=== PATIENT | male | born 1975 | race Caucasian/White ===

== ENCOUNTER 2021-01-22 15:00 | Outpatient (RCR) | payer OTHER, SELFPAY ==
[2021-01-22] MEDS: COVID-19 VACC, MRNA(PFIZER)/PF 30 MCG/0.3 ML SYRINGE IM (15:51)
[2021-02-12] MEDS: COVID-19 VACC, MRNA(PFIZER)/PF 30 MCG/0.3 ML SYRINGE IM (15:20)
== END 2021-01-22 23:59 ==
LOC: IMMUN 15:00
PROVIDERS: PCP Internal Medicine; Visit Provider Family Medicine
DX: Z23 Encounter for immunization (principal)
CPT/HCPCS: 0001A; 0002A; 91300

== ENCOUNTER → 2021-12-15 10:13 | Outpatient (CLI) | payer BC, SELFPAY ==
[2021-12-15 10:52] LABS: D-Dimer Quantitative (DVT/PE) 0.34 FEU/ug/m (0.27-0.49)
== END ==
PROVIDERS: PCP Internal Medicine
DX: R05.9 Cough, unspecified (principal)
CPT/HCPCS: 85379

== ENCOUNTER → 2022-03-09 | Outpatient (CLI) | payer BC, SELFPAY ==
[2022-03-09] MEDS: Methacholine Chloride 18 ml neb kit INHALATION (13:10)
--- NOTE | 2022-03-10 09:44 | BRONCHALL ---
Bronchoprovocation Challenge Bronchoprovocation Challenge Bronchoprovocation Challenge: INTRODUCTION: The patient is a 47-year-old male that presents for a bronchoprovocation challenge secondary to a diagnosis of cough. Respiratory therapy reported good patient effort and reproducible results. INTERPRETATION: Initial spirometry did not show any large airways obstructive ventilatory defect with preserved airflows throughout. The patient was then given progressively increasing doses of methacholine in a standardized fashion. At no point during testing did the patient's FEV1 drop to the threshold level to be considered a positive test. IMPRESSION: Negative methacholine challenge.
== END | disposition home or self-care (01) ==
LOC: PSN 12:57
PROVIDERS: PCP Internal Medicine
DX: R05.9 Cough, unspecified (principal)
CPT/HCPCS: 94070; 95070

== ENCOUNTER 2024-05-09 15:32 | Emergency (ER) | payer BC, SELFPAY ==
[2024-05-09 15:34] VITALS: BP 137/98; PULSE 77; RESP 18; TEMP 35.7; O2SAT 98; BMI 25.9
--- NOTE | 2024-05-09 15:47 | EKG12_ITS ---
Test Reason : PALPITATIONS Blood Pressure : / mmHG Vent. Rate : 071 BPM Atrial Rate : 071 BPM P-R Int : 154 ms QRS Dur : 090 ms QT Int : 398 ms P-R-T Axes : 000 002 038 degrees QTc Int : 432 ms Normal sinus rhythm Normal ECG Confirmed by ALEX COPELAND MD ([id number]), sports editor CHARLA GODDARD ([id number]) on 05/10/2024 9:37:36 AM Referred By: NANCY Confirmed By:ALEX COPELAND MD
--- NOTE | 2024-05-09 15:51 | EDS_ITS ---
HPI History of Present Illness Chief Complaint: Palpitations Informant: patient and spouse/S.O. Onset/Context/Timing Onset: Today and Hours Activity at onset: sudden Timing: Intermittent Current Severity: Mild Maximum Severity: Mild Narrative Narrative: 49-year-old male history of prior Hodgkin's lymphoma years ago and hypothyroidism that was caused by the radiation therapy basically injured his thyroid. He has been taking his medication regularly. No cardiac history. Send 1 to 2 hours ago he started having palpitations. No chest pain. No significant shortness of breath. He has not recently been ill. He denies any leg pain or swelling. No chest pain. No hemoptysis. No fever. Prior Similar Symptoms: No Recent Illness/Hospitalization: No CVD Risk Factors: Negative for Hypertension or Diabetes PE Risk Factors: Negative for Recent Travel/Surgery, Recent Immobilization, Prior DVT or PE, Cancer or OCP + Smoking + >/=35 TAD Risk Factors: Negative for Marfan's Syndrome PFSH PFS Medical History Hodgkin lymphoma Migraines Head ache History of emotional problems Arthritis Allergies Home Medications ?Medication ?Instructions ?Recorded ?Last Taken ?Type bupropion HCl 300 mg 24 hr tablet, 300 mg PO QAM 12/28/21 Unknown History extended release levothyroxine 75 mcg capsule 75 mcg PO DAILY 12/28/21 Unknown History pantoprazole 20 mg tablet,delayed 20 mg PO DAILY 12/28/21 Unknown History release rizatriptan 10 mg tablet 10 mg PO ONCE PRN migraine 12/28/21 Unknown History allopurinol 100 mg tablet 100 mg PO DAILY 05/09/24 Unknown History Allergy/AdvReac Type Severity Reaction Status Date / Time No Known Allergies Allergy Verified 05/09/24 15:33 Family History Father Arthritis Hypertension Seizures Epilepsy Grandmother Heart disease Mother Hypertension Surgical History Hx of reconstruction of anterior cruciate ligament tear Social History Smoking Status: Former smoker ROS ROS ED ROS Narrative Palpitations today. Denies recent illness. Review of Systems ROS Unobtainable: Denies due to encephalopathy Constitutional Constitutional ED: Denies chills or fever(s) Eyes Eyes: Reports none ENT ENT ED: Denies ear pain Cardiovascular Cardiovascular: Reports as per HPI and palpitations; Denies chest pain Respiratory/Chest Respiratory/Chest: Denies cough or dyspnea on exertion Gastrointestinal Gastrointestinal: Denies abdominal pain Genitourinary Genitourinary ED: Denies dysuria or hematuria Musculoskeletal Musculoskeletal: Denies arthralgias or back pain Integumentary Denies abscess Neurologic Neurologic: Denies headache(s) Psychiatric Psychiatric: Denies anxiety Endocrine Endocrinology: Denies cold intolerance Hematologic/Lymphatic Hematologic/Lymphatic: Denies easy bleeding, easy bruising or lymphadenopathy Allergic/Immunologic Allergic/Immunologic ED: Denies mouth swelling, tongue swelling or urticaria EXAM Physical Exam Narrative Exam Narrative: Middle-age male no acute distress vital signs stable afebrile. H EENT exam unremarkable. Moist extremities. Neck nontender. Lungs clear to auscultation bilaterally. Heart regular rate and rhythm. While I am examining the patient he went from a sinus rhythm to intermittent rapid beats which may be intermittent A-fib or flutter on the monitor. His heart rate went to 120s. Abdomen soft nontender. Moving all 4 extremities. Nontender no edema. Normal strength. Calves are nontender. Back normal. He is awake and alert. No focal motor deficits. Const Vital Signs: 05/09/24 15:34 05/09/24 15:55 05/09/24 15:55 Temperature 96.3 F L Temperature Source Temporal Pulse Rate 77 Respiratory Rate 18 Respiratory Effort Normal Non-Labored Blood Pressure 137/98 H Blood Pressure Mean 111 Pulse Ox 98 Oxygen Delivery Method Room Air Room Air 05/09/24 16:41 Temperature 98.4 F Temperature Source Pulse Rate 75 Respiratory Rate 19 H Respiratory Effort Blood Pressure 116/54 L Blood Pressure Mean 74 Pulse Ox 96 Oxygen Delivery Method Positive well nourished and well developed; Negative for obese, cachectic, contractures or unkempt General Appearance ED: well developed and NAD; Negative for unkempt, cachectic, contractures or pallor Nutritional Appearance: Negative for cachectic or obese HEENT Reports moist mucous membranes; Denies dry mucous membranes normocephalic and atraumatic; Negative for trauma or tenderness Mouth ED: No dry mucous membranes Mouth: No dry mucous membranes Eyes PERRL and EOMs intact bilaterally General Eye ED: Negative for pale conjunctiva, scleral icterus or other Neck no lymphadenopathy, supple and no JVD General: Negative for tenderness Chest Wall inspection of chest normal and palpation of chest normal Resp normal respiratory effort and clear to auscultation bilaterally Effort and Inspection: Negative for respiratory distress Auscultation: Negative for rales, rhonchi or wheezes Cardio regular rate, regular rhythm, S1 normal heart sound, S2 normal heart sound and no murmurs Rate: other Other Details: Patient was initially in sinus rhythm then intermittently went into a rapid irregular rhythm possibly A-fib or flutter. Rhythm: abnormal rhythm irregularly irregular Peripheral Pulses: pulses 2+ throughout GI normal to inspection, nondistended, normoactive bowel sounds, soft to palpation, non-tender, non-distended and no masses Back/Spine no CVA tenderness and no thoracic nor lumbar tenderness General Back: Negative for CVA tenderness Cervical Spine: Negative for cervical spine tenderness Extremity normal to inspection General Extremety ED: Negative for edema, pulses abnormal or tenderness General Extremity: Negative for edema or pulses abnormal Neuro oriented x3 and CN's II-XII intact bilaterally Sensorium / Orientation: awake, alert, oriented to person, oriented to place and oriented to time; Negative for confused, lethargic or stuporous Motor Exam: strength 5/5 throughout; Negative for general weakness or strength abnormal Psych mental status grossly normal Appearance: Negative for unkempt Attitude: No agitated Mood & Affect: Negative for depressed, anxious or tearful Skin no rashes or lesions noted and no wounds General Skin Exam: Negative for jaundice or pallor Rashes: No rashes noted Trauma: Negative for abrasion or laceration MDM MDM MDM Narrative Medical decision making narrative: 49-year-old male prior history of Hodgkin's lymphoma and hypothyroidism due to prior radiation comes in with palpitations during the exam he went in an abnormal rhythm may be A-fib or flutter versus other etiologies. Will undergo cardiac workup with a TSH. Further evaluation showed these are PVCs on his EKG and on the monitor. Not A- fib or flutter. They come and go. Patient and his traveled from [place] recently. He said he used more than as normal caffeine that day. Repeat exam is doing well at 4:30 PM. Went over his test results. We discharged home. Outpatient follow-up. Follow-up with his repeat thyroid test he has upcoming lab work and limit his caffeine. History & Record Review Discussion w/independent historian: Patient and Family Additional record(s) reviewed:: Prior inpatient record, Prior outpatient record, Prior ED visit and Prior labs Lab Data Attestation: I reviewed the patient's lab results. Lab results narrative: CBC normal. White count of 6. H&H of 15 and 45. Platelets 262. Electrolytes show gap 6. Normal BUN and creatinine. Glucose 117. Troponin normal at 6. TSH slightly elevated 5.2. Labs: Laboratory Results - last 24 hr 05/09/24 15:45 WBC 6.8 RBC 5.13 Hgb 15.6 Hct 45.0 MCV 87.7 MCH 30.4 MCHC 34.7 RDW Std Deviation 43.5 RDW Coeff of Robert 13.7 Plt Count 262 MPV 9.8 Immature Gran % (Auto) 0.900 Neut % (Auto) 65.3 Lymph % (Auto) 24.9 [place] % (Auto) 5.7 Eos % (Auto) 2.5 Baso % (Auto) 0.7 Absolute Neuts (auto) 4.5 Absolute Lymphs (auto) 1.70 Nucleated RBC % 0 Sodium 142 Potassium 3.5 Chloride 108 H Carbon Dioxide 28.0 Anion Gap 6 BUN 13 Creatinine 1.16 Estim Creat Clear Calc 76.16 Est GFR (MDRD) Af Amer 87 Est GFR (MDRD) Non-Af 72 BUN/Creatinine Ratio 11.2 Glucose 117 H Calcium 9.0 Troponin I High Sens 6 TSH 5.23 H Radiography Chest X-Ray - ED: 1 View, Read by ED Physician, Normal, Heart, Lungs, Mediastinum, Bony Structures, No Acute Disease and Chronic Changes Diagnostic Testing: Clinical Impression(s) from Imaging Studies Chest X-Ray 05/09/24 15:56 IMPRESSION: No radiographic evidence of acute cardiopulmonary disease. Electronically Signed: Vinh Lopez DO at 16:29 EDT , Chest x-ray, portable, single view interpreted by myself shows no acute abnormality. Normal lung [place]udd[place]. Normal cardiac silhouette. Normal mediastinum. Rhythm Strip Rhythm Strip: Sinus Rhythm Rate: 70 Ectopy: PVC(s) EKG Initial EKG: Attestation: I personally reviewed and interpreted this EKG as follows: Interpretation: Sinus Rhythm and No Acute Injury Pattern Comments: Normal sinus rhythm with runs of PVCs. Prior EKG tracings: not available for review Prior: No Prior Follow-up EKG: Attestation: I personally reviewed and interpreted this EKG as follows: Interpretation: Sinus Rhythm and No Acute Injury Pattern Comments: Normal sinus rhythm rate 71 this EKG had no PVCs. Discharge Plan Triage Chief Complaint: Palpitations ED Provider: Jorge Luis Olmos Dx/Rx/DC Orders Clinical Impression: Heart palpitations, Frequent PVCs, History of hypothyroidism Instructions: PVCs, ED Palpitations Prescriptions: No Action levothyroxine 75 mcg capsule 75 mcg PO DAILY bupropion HCl 300 mg tablet extended release 24 hr 300 mg PO QAM pantoprazole 20 mg tablet,delayed release (DR/EC) 20 mg PO DAILY rizatriptan 10 mg tablet 10 mg PO ONCE PRN (Reason: migraine) Rx Instructions: as a single dose allopurinol 100 mg tablet 100 mg PO DAILY Primary Care Provider: DIANNA RECINOS Referrals: Anabella Little MD [Med Staff - [facility]] - Activity Restrictions/Additional Instructions: Your chest x-ray was normal. Your labs including CBC, electrolytes, blood sugar and kidney function were good. Your TSH or thyroid lab was slightly elevated at 5.23. The palpitations you are feeling are premature beats called PVCs premature contractions. Typically safe will go away. Most likely secondary to the increased caffeine you had yesterday. Limit your caffeine use the next several days. Limit alcohol consumption. Plenty of fluids and rest. These should resolve. Follow-up with your doctor when you return to [place]. Get your normal screening blood work. They can recheck your thyroid test or TSH to see if it is improving. Print Language: Malay Disposition Disposition: Home, Self Care
[2024-05-09 15:53] LABS: Absolute Neutrophil Count 4.5 X10^3/uL (2.0-7.7); Basophil# 0.05 X10^3/uL; Basophil% 0.7 % (0-1); Eosinophil# 0.17 X10^3/uL; Eosinophils% 2.5 % (0-5); Hemoglobin 15.6 g/dL (13.0-16.5); Lymphocyte % 24.9 % (19-41); Mean Corp Hgb Conc 34.7 g/dL (32-36); Mean Corpuscular Hgb 30.4 pg (27.0-32.0); Mean Corpuscular Volume 87.7 fL (80-94); Mean Platelet Vol. 9.8 fl (6.2-12.0); Monocyte# 0.39 X10^3/uL; Monocyte% 5.7 % (0-10); NRBC Flagged by Analyzer 0 % (0-5); Neutrophil # 4.46 X10^3/uL (2.7-7.7); Neutrophil % 65.3 % (47-70); Platelet Count 262 K/mm3 (150-450); RBC Distribution Width CV 13.7 % (11.6-14.6); RBC Distribution Width SD 43.5 fl (35.1-43.9); Red Blood Count 5.13 M/mm3 (4.6-6.2); White Blood Count 6.8 K/mm3 (4.4-11.0)
--- NOTE | 2024-05-09 15:56 | RAD_ITS ---
INDICATION: chest pain EXAMINATION/TECHNIQUE: X-RAY - XR Chest 1 View COMPARISON: FINDINGS: LINES/DEVICES: None. LUNGS: No consolidation, edema or effusion. No pneumothorax. MEDIASTINUM AND CARDIOVASCULAR STRUCTURES: Cardiac silhouette not enlarged. Central airways and mediastinal contour are unremarkable. BONES AND SOFT TISSUES: Unremarkable. RAD/Chest 1 View (Portable) IMPRESSION: No radiographic evidence of acute cardiopulmonary disease. Electronically Signed: Vinh Lopez DO at 16:29 EDT ,
--- NOTE | 2024-05-09 16:00 | EKG12_ITS ---
Test Reason : PALPITATIONS Blood Pressure : / mmHG Vent. Rate : 070 BPM Atrial Rate : 070 BPM P-R Int : 142 ms QRS Dur : 090 ms QT Int : 392 ms P-R-T Axes : 072 067 033 degrees QTc Int : 423 ms Sinus rhythm with occasional Premature ventricular complexes Otherwise normal ECG Confirmed by DINORAH TARANGO, ALEX ([id number]), editorial director CHARLA GODDARD ([id number]) on 05/10/2024 9:37:53 AM Referred By: NANCY Confirmed By:ALEX COPELAND MD
[2024-05-09 16:22] LABS: Anion Gap 6 (5-15); BUN 13 mg/dL (7-18); BUN/Creat Ratio 11.2 RATIO (10-20); Chloride 108 mmol/L (98-107); Creatinine, Serum 1.16 mg/dL (0.70-1.30); EST Glomerular Filtration Rate 72 mL/min (>60); Est Glom Filt Rate - Afr Amer 87 mL/min (>60); Estimated Creatinine Clearance 76.16 ml/min; Glucose 117 mg/dL (74-106); Potassium 3.5 mmol/L (3.5-5.1); Sodium Level 142 mmol/L (136-145); Thyroid Stim Hormone (TSH) 5.23 uIU/mL (0.358-3.74); Troponin-I HS 6 pg/mL (3.0-78.0)
[2024-05-09 16:41] VITALS: BP 116/54; PULSE 75; RESP 19; TEMP 36.9; O2SAT 96
== END 2024-05-09 16:42 | disposition home or self-care (01) ==
PROVIDERS: Emergency Provider Emergency Medicine; Visit Provider Emergency Medicine
DX: R00.2 Palpitations (principal); I49.3 Ventricular premature depolarization; Z79.899 Other long term (current) drug therapy; Z87.891 Personal history of nicotine dependence
CPT/HCPCS: 71045; 80048; 84443; 84484; 85025; 93005; 99283; A4216